=== PATIENT | male | born 1985 | race Caucasian/White ===

== ENCOUNTER 2024-05-25 14:28 | Emergency (ER) | payer BC ==
[~2024-05-25] VITALS: Ht 167.6 cm; Wt 97.1 kg
[2024-05-25 14:30] VITALS: BP_SYST 142; PULSE 82; RESP 18; TEMP 97.4; O2SAT 97
[2024-05-25 15:54] LABS: BASOPHILS # (AUTO) 0.1 K/uL (0.0-0.2); BASOPHILS % (AUTO) 0.5 % (0.0-2.0); EOSINOPHILS # (AUTO) 0.2 K/uL (0.0-0.4); HEMATOCRIT 43.7 % (36-54); HEMOGLOBIN 15.2 g/dL (14.0-18.0); LYMPHOCYTES # (AUTO) 2.5 K/uL (1.0-5.5); LYMPHOCYTES % (AUTO) 23.8 % (20.5-51.5); MEAN CORPUSCULAR HEMOGLOBIN 28 pg (27-31); MEAN CORPUSCULAR HGB CONC 35 % (32-36); MEAN CORPUSCULAR VOLUME 82 fL (79.0-98.0); MONOCYTES # (AUTO) 0.7 K/uL (0.0-1.0); NEUTROPHILS # (AUTO) 6.9 K/uL (1.8-7.7); NEUTROPHILS % (AUTO) 66.7 % (40.0-70.0); PLATELET COUNT (AUTO) 333 K/uL (130-430); RED BLOOD CELL COUNT(AUTO) 5.35 MIL/uL (4.2-6.2); WHITE BLOOD COUNT (AUTO) 10.4 K/uL (4.8-10.8)
[2024-05-25 16:07] LABS: ALANINE AMINOTRANSFERASE 96 U/L (12-78); ALBUMIN 4.1 g/dL (3.4-4.8); ANION GAP 6 (5-15); ASPARTATE AMINOTRANSFERASE 33 U/L (10-37); CALCIUM 9.1 mg/dL (8.4-11.0); CARBON DIOXIDE 29 mmol/L (23-29); CHLORIDE 103 mmol/L (98-107); CREATININE 0.88 mg/dL (0.55-1.30); GFR AFRICAN AMERICAN 124 mL/min (>90); GFR NON AFRICAN-AMERICAN 102 mL/min (>90); GLUCOSE 91 mg/dL (74-106); SODIUM SERUM 138 mmol/L (136-145); TOTAL PROTEIN, SERUM 8.6 g/dL (6.4-8.3); UREA NITROGEN, BLOOD 15 mg/dL (8-21)
[2024-05-25 16:20] LABS: AMYLASE 107 U/L (0-100); BILIRUBIN,DIRECT 0.2 mg/dL (0.0-0.3); LIPASE 60 U/L (16-77)
[2024-05-25 16:28] LABS: BILIRUBIN,URINE NEGATIVE (NEGATIVE); BLOOD, URINE NEGATIVE (NEGATIVE); CLARITY/URINE CLEAR (CLEAR); COLOR,URINE YELLOW (YELLOW); GLUCOSE,URINE NEGATIVE (NEGATIVE); KETONES,URINE NEGATIVE (NEGATIVE); LEUKOCYTE ESTERASE ,URINE NEGATIVE (NEGATIVE); NITRITE, URINE NEGATIVE (NEGATIVE); PH,URINE 6.5 (5.0-8.0); PROTEIN URINE NEGATIVE (NEGATIVE)
[2024-05-25 16:35] LABS: ACETONE, SERUM NEGATIVE (NEGATIVE)
[2024-05-25] MEDS: IBUPROFEN 800 MG TABLET PO ONE (16:43)
[2024-05-25] MEDS: ONDANSETRON 4 MG ODT TAB PO ONE (16:43)
[2024-05-25] MEDS ORDERED: OMEP20CA15 PO (17:03)
[2024-05-25] MEDS ORDERED: ONDA-8 TL (17:05)
[2024-05-25] MEDS ORDERED: HYDR-3917 PO (17:05)
[2024-05-25 17:25] VITALS: BP_SYST 142; PULSE 82; RESP 18; TEMP 97.4; O2SAT 97
== END 2024-05-25 17:24 | disposition home or self-care (01) ==
LOC: SED 14:28
DX: K25.9 Gastric ulcer, unspecified as acute or chronic, without hemorrhage or perforation (principal); R10.13 Epigastric pain; R11.2 Nausea with vomiting, unspecified; Z79.899 Other long term (current) drug therapy
CPT/HCPCS: 99284; 74176; 80076; 80048; 81001; 82009; 82150; 83690; 85025; 36415; 83605; 82397; 81003; Q0162